=== PATIENT | female | born 1985 | race Asian ===

== ENCOUNTER 2025-08-13 20:54 | Emergency (ER) | payer SELFPAY ==
[2025-08-13 20:59] VITALS: BP 110/71
[2025-08-13 23:15] VITALS: BP 105/61
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
[2025-08-14 00:37] VITALS: BMI 20.2
[2025-08-14] MEDS: TYLENOL 1000 MG PO (00:54)
[2025-08-14 01:43] VITALS: BP 114/67
== END 2025-08-14 01:44 | disposition home or self-care (01) ==
LOC: EMR 20:54
PROVIDERS: EMERGENCY PHYSICIAN Emergency Medicine
DX: S13.4XXA Sprain of ligaments of cervical spine, initial encounter (principal); S50.11XA Contusion of right forearm, initial encounter; S70.01XA Contusion of right hip, initial encounter; M25.551 Pain in right hip; M25.552 Pain in left hip; V43.52XA Car driver injured in collision with other type car in traffic accident, initial encounter; Y92.410 Unspecified street and highway as the place of occurrence of the external cause
CPT/HCPCS: 99284; 72125; 73070; 73090; 73522